=== PATIENT | female | born 1970 | race Caucasian/White ===

== ENCOUNTER → 2021-05-06 | Day surgery (SDC) | payer BC, OTHER ==
[~2021-05-06] MED LIST: AMLODIPINE BESYL5 MG PO; LISINOPRIL20 MG PO; PROZAC40 MG PO; SODIUM CHLORIDE 0.9% 50ML 50 ML ONE; XANAX0.25 MG PO
[2021-05-06 15:15] VITALS: BP 120/84
== END | disposition home or self-care (01) ==
LOC: OR 12:36
PROVIDERS: ATTEND Internal Medicine Gastroenterology
DX: K57.92 Diverticulitis of intestine, part unspecified, without perforation or abscess without bleeding (principal); K29.50 Unspecified chronic gastritis without bleeding; K21.9 Gastro-esophageal reflux disease without esophagitis; K20.90 Esophagitis, unspecified without bleeding; K44.9 Diaphragmatic hernia without obstruction or gangrene; K31.89 Other diseases of stomach and duodenum; K64.8 Other hemorrhoids; K59.09 Other constipation; I10 Essential (primary) hypertension; F32.9 Major depressive disorder, single episode, unspecified; Z01.810 Encounter for preprocedural cardiovascular examination; Z01.812 Encounter for preprocedural laboratory examination; Z20.822 Contact with and (suspected) exposure to COVID-19
CPT/HCPCS: 43239; 43450; 45378; 93005; C9113; U0002

== ENCOUNTER 2024-09-05 15:17 | Emergency (ER) | payer BC, OTHER ==
[~2024-09-05] VITALS: Ht 157.5 cm; Wt 61.9 kg
[~2024-09-05 15:17] MED LIST changes: -SODIUM CHLORIDE 0.9% 50ML 50 ML ONE
[2024-09-05] MEDS ORDERED: METHOTREXA25 MG/1 ML SC (15:34)
[2024-09-05] MEDS ORDERED: LISINOPRIL10 MG PO (15:34)
[2024-09-05] MEDS ORDERED: MELOXICAM7.5 MG PO (15:41)
[2024-09-05] MEDS: PREDNISONE 20 MG TAB PO ONE (16:24)
[2024-09-05] MEDS: DIPHENHYDRAMINE HCL 25 MG CAP PO ONE (16:24)
[2024-09-05] MEDS: IBUPROFEN 600 MG TAB PO STA (19:10)
[2024-09-05] MEDS: ASPIRIN 325 MG TAB PO ONE (19:48)
[2024-09-05 19:49] VITALS: BP 166/101; PULSE 72
[2024-09-05] MEDS: NIFEDIPINE 10 MG CAP PO STA (19:49)
[2024-09-05 21:35] VITALS: PULSE 68; RESP 16; TEMP 97.6; O2SAT 99
== END 2024-09-05 21:37 | disposition other institution (70) ==
LOC: FSED 15:24
DX: I73.9 Peripheral vascular disease, unspecified (principal); I10 Essential (primary) hypertension; F41.9 Anxiety disorder, unspecified; F32.A Depression, unspecified
CPT/HCPCS: 36415; 73630 ×2; 73660 ×2; 80048; 82550; 83605; 85025; 86039; 86140; 99284; J7512